=== PATIENT | male | born 1975 | race Caucasian/White ===

== ENCOUNTER → 2019-03-11 | Outpatient (CLI) | payer BC | END | disposition home or self-care (01) | LOC: RAD 08:29 | PROVIDERS: ATTEND Physician Assistant Surgical | DX: S83.8X1A Sprain of other specified parts of right knee, initial encounter (principal); X58.XXXA Exposure to other specified factors, initial encounter; Y93.89 Activity, other specified; Y92.89 Other specified places as the place of occurrence of the external cause; Y99.8 Other external cause status ==